=== PATIENT | female | born 1985 | race Caucasian/White ===

== ENCOUNTER 2021-05-02 17:29 | Emergency (ER) | payer MEDICAID, SELFPAY ==
[~2021-05-02] VITALS: Ht 152.4 cm; Wt 56.7 kg
[2021-05-02 17:30] VITALS: BP_SYST 110
--- NOTE | 2021-05-02 17:45 | NUR ---
Patient to ER bed tent to gown for evaluation. Side rails up.
--- NOTE | 2021-05-02 17:50 | NUR ---
Pt brought by mother, A&Ox4, pt presents to ER with cough / congestion, pt afebrile, skin pink and warm, respirations even and unlabored, will cont to monitor.
--- NOTE | 2021-05-02 18:30 | NUR ---
DR. MEYER AT BEDSIDE FOR EVALUATION.
[2021-05-02 20:20] VITALS: BP_SYST 110
--- NOTE | 2021-05-02 20:20 | NUR ---
Patient given written and verbal discharge instructions and verbalizes understanding. DR. BETSY GARNETT MD discussed with patient the results and treatment provided. Patient in stable condition. ID arm band removed. Patient educated on pain management and to follow up with PMD. Pain Scale 0/10 Opportunity for questions provided and answered. Medication side effect fact sheet provided.
== END 2021-05-02 20:20 | disposition home or self-care (01) ==
LOC: SED 17:29
DX: J06.9 Acute upper respiratory infection, unspecified (principal); J45.909 Unspecified asthma, uncomplicated; Z20.822 Contact with and (suspected) exposure to COVID-19
CPT/HCPCS: 36415; 71045; 99284

== ENCOUNTER 2021-06-10 09:38 | Emergency (ER) | payer MEDICAID, SELFPAY ==
[~2021-06-10] VITALS: Ht 157.5 cm; Wt 59.9 kg
[2021-06-10 09:50] VITALS: BP_SYST 100
--- NOTE | 2021-06-10 09:50 | NUR ---
Patient to ER bed 3 to gown for evaluation. Side rails up.
--- NOTE | 2021-06-10 09:51 | NUR ---
pt. came in with c/o frequent painful urination and states when she wipes she see blood, urine specimen obtained, pt. denies pain now.
--- NOTE | 2021-06-10 09:55 | NUR ---
ER at bedside examining patient.
--- NOTE | 2021-06-10 10:04 | NUR ---
lab here for blood draw
[2021-06-10 10:26] LABS: BASOPHILS % (AUTO) 0.3 % (0.0-2.0); EOSINOPHILS # (AUTO) 0.2 K/uL (0.0-0.4); EOSINOPHILS % (AUTO) 2.6 % (0.0-4.0); HEMATOCRIT 38.1 % (36-48); LYMPHOCYTES # (AUTO) 1.7 K/uL (1.0-5.5); LYMPHOCYTES % (AUTO) 20.1 % (20.5-51.5); MEAN CORPUSCULAR HEMOGLOBIN 30 pg (27-31); MEAN CORPUSCULAR HGB CONC 34 % (32-36); MEAN CORPUSCULAR VOLUME 89 fL (79.0-98.0); MONOCYTES # (AUTO) 0.5 K/uL (0.0-1.0); MONOCYTES % (AUTO) 6.4 % (1.7-9.3); NEUTROPHILS % (AUTO) 70.6 % (40.0-70.0); PLATELET COUNT (AUTO) 205 K/uL (130-430); RED BLOOD CELL COUNT(AUTO) 4.29 MIL/uL (4.2-6.2); RED CELL DISTRIBUTION WIDTH 13.6 % (9.0-15.0); WHITE BLOOD COUNT (AUTO) 8.5 K/uL (4.8-10.8)
[2021-06-10 10:37] LABS: CALCIUM 8.8 mg/dL (8.4-11.0); CREATININE 0.73 mg/dL (0.55-1.30); POTASSIUM 3.8 mmol/L (3.5-5.1)
[2021-06-10 10:41] LABS: PROTHROMBIN TIME 10.2 SECS (9.5-12.5)
[2021-06-10 10:42] LABS: ALBUMIN 3.6 g/dL (3.4-4.8); C-REACTIVE PROTEIN QUANT 1.1 mg/dL (0-0.5); TOTAL BILIRUBIN 0.5 mg/dL (0.0-1.0)
[2021-06-10 10:58] LABS: BILIRUBIN,URINE NEGATIVE (NEGATIVE); BLOOD, URINE 2+ (NEGATIVE); CLARITY/URINE CLEAR (CLEAR); COLOR,URINE YELLOW (YELLOW); GLUCOSE,URINE NEGATIVE (NEGATIVE); KETONES,URINE NEGATIVE (NEGATIVE); LEUKOCYTE ESTERASE ,URINE 1+ (NEGATIVE); NITRITE, URINE POSITIVE (NEGATIVE); PROTEIN URINE TRACE (NEGATIVE); UROBILINOGEN,URINE 0.2 (0.2-1.0)
[2021-06-10] MEDS ORDERED: PHEN-726 PO (11:14)
[2021-06-10] MEDS ORDERED: NITR-85 PO (11:14)
[2021-06-10 11:31] LABS: BACTERIA,URINE FEW /HPF (None Seen); WBC,URINE 20-50 /HPF (0-3)
[2021-06-10 11:32] LABS: MUCUS,URINE 1+ /LPF (None Seen)
[2021-06-10 11:45] VITALS: BP_SYST 100
--- NOTE | 2021-06-10 11:45 | NUR ---
Patient given written and verbal discharge instructions and verbalizes understanding. ER MD discussed with patient the results and treatment provided. Patient in stable condition. ID arm band removed. Rx of pyridium given. Patient educated on pain management and to follow up with PMD. Pain Scale 0/10 Opportunity for questions provided and answered. Medication side effect fact sheet provided.
== END 2021-06-10 11:45 | disposition home or self-care (01) ==
LOC: SED 09:38
DX: N39.0 Urinary tract infection, site not specified (principal); J45.909 Unspecified asthma, uncomplicated
CPT/HCPCS: 36415; 80053; 81000; 81025; 82150; 83690; 84703; 85025; 85610-TC; 85730-TC; 86140; 87086; 99283

== ENCOUNTER 2021-07-22 15:29 | Emergency (ER) | payer MEDICAID ==
[~2021-07-22] VITALS: Ht 157.5 cm; Wt 61.2 kg
[~2021-07-22 15:29] MED LIST: NITR-85 PO; PHEN-726 PO
[2021-07-22 15:30] VITALS: BP_SYST 131
--- NOTE | 2021-07-22 15:30 | NUR ---
BROUGHT BACK TO BED #5 AND TRIAGED. REPORT GIVEN TO EFRAIN
--- NOTE | 2021-07-22 15:52 | NUR ---
Pt came into ER with complaint of right shoulder pain 04/25 radiating to the back and down the right arm and right leg X2days. Pt reports burning sensation. Pt reports she saw a chiropractor on saturday and and after her session the pain started. Pt is AAOX4 speaking full sentences. Breathing is even and unlabored. Pt is sitting up on [facility] VSS no visible distress noted.
--- NOTE | 2021-07-22 16:14 | NUR ---
ER at bedside examining patient.
[2021-07-22] MEDS ORDERED: LIDO700A30 TP (16:21)
[2021-07-22] MEDS ORDERED: CYCL10TA24 PO (16:21)
--- NOTE | 2021-07-22 16:25 | NUR ---
Patient given written and verbal discharge instructions and verbalizes understanding. ER MD discussed with patient the results and treatment provided. Patient in stable condition. ID arm band removed. Rx of flexeril and lidocaine given. Patient educated on pain management and to follow up with PMD. Pain Scale 0/10. Opportunity for questions provided and answered. Medication side effect fact sheet provided.
[2021-07-22 16:26] VITALS: BP_SYST 131
== END 2021-07-22 16:25 | disposition home or self-care (01) ==
LOC: SED 15:29
DX: S29.012A Strain of muscle and tendon of back wall of thorax, initial encounter (principal); J45.909 Unspecified asthma, uncomplicated; Z79.899 Other long term (current) drug therapy; X50.9XXA Other and unspecified overexertion or strenuous movements or postures, initial encounter; Y93.89 Activity, other specified; Y92.89 Other specified places as the place of occurrence of the external cause; Y99.8 Other external cause status
CPT/HCPCS: 99283

== ENCOUNTER 2023-01-28 19:50 | Emergency (ER) | payer MEDICAID ==
[~2023-01-28] VITALS: Ht 157.5 cm; Wt 62.6 kg
[~2023-01-28 19:50] MED LIST changes: +CYCL10TA24 PO; +LIDO700A30 TP
[2023-01-28 19:55] VITALS: BP_SYST 120
[2023-01-29] MEDS ORDERED: NAPR-688 PO (12:27)
[2023-01-29] MEDS ORDERED: TRAM50TA2 PO (12:27)
== END 2023-01-28 21:00 | disposition left against medical advice (07) ==
LOC: SED 19:50
DX: M54.50 Low back pain, unspecified (principal); Z53.21 Procedure and treatment not carried out due to patient leaving prior to being seen by health care provider
CPT/HCPCS: 99281

== ENCOUNTER 2023-01-29 10:25 | Emergency (ER) | payer MEDICAID ==
[~2023-01-29] VITALS: Ht 157.5 cm; Wt 62.6 kg
[2023-01-29 10:25] VITALS: BP_SYST 108
[2023-01-29] MEDS ORDERED: KETOROLAC TROMETHAMINE 60 MG/2 ML VIAL IM ONE (11:15)
[2023-01-29] MEDS ORDERED: NAPR-688 PO (12:27)
[2023-01-29] MEDS ORDERED: TRAM50TA2 PO (12:27)
== END 2023-01-29 12:39 | disposition home or self-care (01) ==
LOC: SED 10:25
DX: M54.50 Low back pain, unspecified (principal); J45.909 Unspecified asthma, uncomplicated; Z79.899 Other long term (current) drug therapy
CPT/HCPCS: 99283; 72100; 81025; 96372; J1885